=== PATIENT | female | born 1955 | race Caucasian/White ===

== ENCOUNTER 2016-08-12 06:56 | Day surgery (SDC) | payer MEDICAID ==
[~2016-08-12] VITALS: Ht 152.4 cm; Wt 63.1 kg
[~2016-08-12 06:56] MED LIST: AMO500 PO; IBUP-1542 PO; NPH10OT RIGHT EAR
[2016-08-12] MEDS ORDERED: LEVOTHYROXINE (07:22)
[2016-08-12 07:24] VITALS: Ht 152.4 cm; Wt 63.1 kg
[2016-08-12 08:48] VITALS: BP 127/59; PULSE 66; RESP 16
[2016-08-12] MEDS ORDERED: FENTAnyl 50 MCG/ML VIAL ONE (09:41)
[2016-08-12] MEDS ORDERED: MIDAZOLAM 1 MG/ML 2 ML INJ ONE ×2 (09:42)
[2016-08-12 10:00] VITALS: BP 101/55; PULSE 59; RESP 16
--- NOTE | 2016-08-12 10:20 | GILP ---
DATE OF PROCEDURE: NAME OF PROCEDURES: Colonoscopy, biopsy and polypectomy. SURGEON: Mick Villatoro MD PREOPERATIVE DIAGNOSIS: Positive occult blood in stool. POSTOPERATIVE DIAGNOSES 1. Colonoscopy all the way to the cecum. 2. Sigmoid polyp at 20 cm from the anus was removed using the snare and electrocautery. 3. Another small sigmoid colon polyp was removed using the biopsy forceps. 4. Diverticulosis of the colon. 5. Internal hemorrhoids. INDICATION FOR THE PROCEDURE: Ms. Monica Flanagan is a 60-year-old female patient who was noted to have p ositive occult blood in stool. The patient was scheduled for colonoscopy for further evaluation. The procedure and possible complications are well explained to the patient, she understood and conse nted to the procedure. DESCRIPTION OF PROCEDURE: Under the influence of fentanyl and Versed, the colonoscope was carefully introduced in the rectum and under direct vision, it was advanced all the way to the cecum. FINDINGS: The patient had a sigmoid colon polyp at 20 cm from the anus and it was removed using the snare and electrocautery. The patient also had another small sigmoid colon polyp and it was remove d using the biopsy forceps. She had diverticulosis of the colon and internal hemorrhoids. She tolerated the procedure very well and there was no complication from the procedure. At the end of the procedures, she was awake with stable vital signs and she was discharged home to the care of her family. IMPRESSION: Please see postoperative diagnoses. PLAN: 1. Await histopathology reports. 2. Next screening colonoscopy in 5 years. Dictated By: MICK VILLATORO MD GD/NTS Conf#: [id number] DID#: [id number]
== END 2016-08-12 12:12 | disposition home or self-care (01) ==
LOC: GIL 06:56
PROVIDERS: ATTEND Internal Medicine Gastroenterology
DX: K92.1 Melena (principal); D12.5 Benign neoplasm of sigmoid colon; K57.90 Diverticulosis of intestine, part unspecified, without perforation or abscess without bleeding; K64.8 Other hemorrhoids
CPT/HCPCS: 45380; 88305; J2250; J3010; Z7610

== ENCOUNTER 2016-09-16 18:02 | Emergency (ER) | payer MEDICAID, OTHER ==
[~2016-09-16] VITALS: Wt 71.0 kg
[~2016-09-16 18:02] MED LIST changes: -AMO500 PO; -IBUP-1542 PO; +LEVOTHYROXINE; -NPH10OT RIGHT EAR
--- NOTE | 2016-09-16 23:08 | ERA ---
ER Documentation Chief Complaint Date/Time DATE: 09/16/16 TIME: 23:08 Chief Complaint LOWER ABD PAIN X 8 DAYS WITH N/V TODAY HPI The patient is a 60-year-old female, presenting to the ER because of abdominal pain for 1 day, associated with vomiting of mostly mucus. She had similar symptoms previously. The pain is vague 5/10, no aggravating or relieving factor. He denies fever, chills, neck pain, chest pain, dysuria, diarrhea. She does not smoke nor drink Past medical history: Hypothyroidism, hemorrhoids Past surgical history: Polypectomy during colonoscopy in July 2016, ROS All systems reviewed and are negative except as per history of present illness. Medications Home Meds Active Scripts Ibuprofen* (Motrin*) 600 Mg Tab, 600 MG PO Q6H Y for PAIN AND OR ELEVATED TEMP, #20 TAB Prov:DAWSON SANDOVAL MD 09/17/16 Reported Medications [Levothyroxine] No Conflict Check 08/12/16 Allergies Allergies: Coded Allergies: No Known Allergy (Unverified , 08/12/16) PMhx/Soc History of Surgery: Yes () Anesthesia Reaction: No Hx Neurological Disorder: No Hx Respiratory Disorders: No Hx Cardiac Disorders: No Hx Psychiatric Problems: No Hx Miscellaneous Medical Probl: No Hx Alcohol Use: No Hx Substance Use: No Hx Tobacco Use: No Physical Exam Vitals Vital Signs Date Time Temp Pulse Resp B/P Pulse Ox O2 Delivery O2 Flow Rate FiO2 09/17/16 00:00 52 14 106/50 Room Air 09/16/16 23:30 53 13 105/56 Room Air 09/16/16 18:15 98.0 59 18 125/60 99 Physical Exam Const: No acute distress. Head: Atraumatic. Eyes: Normal Conjunctiva. ENT: Normal External Ears, Nose and Mouth. Neck: Full range of motion. No meningismus. Resp: Clear to auscultation bilaterally. Cardio: Regular rate and rhythm, no murmurs. Abd: Soft, non distended, normal bowel sounds, vague and diffuse abdominal tenderness, no rigidity, rebound, CVA tenderness Skin: No petechiae or rashes. Back: No midline or flank tenderness. Ext: No cyanosis, or edema. Neur: Awake and alert. No focal deficit Psych: Normal Mood and Affect. Result Diagram: 09/16/16 2340 09/16/16 2340 Results 24 hrs Laboratory Tests Test 09/16/16 23:33 09/16/16 23:40 Bedside Urine pH (LAB) 7.0 Bedside Urine Protein (LAB) Negative Bedside Urine Glucose (UA) Negative Bedside Urine Ketones (LAB) Negative Bedside Urine Blood 2+ Bedside Urine Nitrite (LAB) Negative Bedside Urine Leukocyte Esterase (L Negative White Blood Count 5.810^3/ul Red Blood Count 4.2010^6/ul Hemoglobin 12.6g/dl Hematocrit 38.3% Mean Corpuscular Volume 91.2fl Mean Corpuscular Hemoglobin 30.0pg Mean Corpuscular Hemoglobin Concent 32.9g/dl Red Cell Distribution Width 12.7% Platelet Count 93647^3/UL Mean Platelet Volume 9.5fl Neutrophils % 54.0% Lymphocytes % 36.5% Monocytes % 8.1% Eosinophils % 0.7% Basophils % 0.5% Nucleated Red Blood Cells % 0.0/100WBC Neutrophils # 3.110^3/ul Lymphocytes # 2.110^3/ul Monocytes # 0.510^3/ul Eosinophils # 0.010^3/ul Basophils # 0.010^3/ul Nucleated Red Blood Cells # 0.010^3/ul Sodium Level 140mmol/L Potassium Level 3.6mmol/L Chloride Level 105mmol/L Carbon Dioxide Level 27mmol/L Anion Gap 12 Blood Urea Nitrogen 14mg/dl Creatinine 0.63mg/dl Glucose Level 107mg/dl Calcium Level 9.2mg/dl Total Bilirubin 0.5mg/dl Direct Bilirubin 0.00mg/dl Indirect Bilirubin 0.5mg/dl Aspartate Amino Transf (AST/SGOT) 18IU/L Alanine Aminotransferase (ALT/SGPT) 25IU/L Alkaline Phosphatase 93IU/L Total Protein 6.5g/dl Albumin 3.6g/dl Globulin 2.90g/dl Albumin/Globulin Ratio 1.24 Lipase 63U/L Current Medications Medications (Trade) Dose Ordered Sig/Xiomy Route PRN Reason Start Time Stop Time Status Last Admin Dose Admin Sodium Chloride (NS) 1,000 ml @ 1,000 mls/hr Q1H ONCE IV 09/17/16 00:00 09/17/16 00:59 DC 09/17/16 00:40 Ondansetron HCl (Zofran Inj) 4 mg ONCE STAT IV 09/16/16 23:59 09/17/16 00:05 DC 09/17/16 00:40 Ketorolac Tromethamine (Toradol) 30 mg ONCE STAT IV 09/16/16 23:59 09/17/16 00:05 DC 09/17/16 00:41 Procedures/MDM [place] [id number] Radiology Main Line: [phone] DIAGNOSTIC IMAGING REPORT Patient: AMANDO JENSEN : 1955 Age: 60 Sex: F MR #: [id number] DOS: 09/16/16 1108 Ordering MD: DAWSON SANDOVAL MD Location: E/R Room/Bed: PROCEDURE: CT Abdomen and Pelvis without contrast. CLINICAL INDICATION: Pain. TECHNIQUE: CT scan of the abdomen and pelvis was performed on a multidetector slice CT scanner. No intravenous contrast material was utilized. Sagittal and coronal reformatted images were obtained from the axial source images. Images were reviewed on a high-resolution PACS workstation. Exam CTDlvol = 10 mGy and DLP = 504 Gy-cm. One of the following 3 dose reduction techniques were used: Automated exposure control; adjustment of the mA and/or kV according to patient size; or use of iterative reconstruction technique. COMPARISON: None. FINDINGS: There is no obstruction or ileus. There is abundant stool throughout the colon. The appendix is visualized and is normal in size. There is no evidence for acute appendicitis. There is sigmoid colon diverticulosis without evidence for diverticulitis. There is no free fluid. The liver is overall normal in size. There are multiple hypodense lesions within the liver, consistent with cyst. The largest lesions in the left lobe at 3.25 cm in diameter.. The gallbladder has been removed. There is no definite biliary ductal dilation. Pancreas is normal in appearance. Spleen is unremarkable.. There are no adrenal masses. The aorta is normal caliber. There is a 4 mm fat containing lesion in the cortex in the mid pole right kidney , likely an angiomyolipoma. Kidneys are otherwise normal in appearance without hydronephrosis or calculus. Ureters are of normal caliber. Urinary bladder is unremarkable. Uterus is unremarkable. Ovaries are not well characterized. There are degenerative changes of the lumbar spine. Limited evaluation lung bases is unremarkable. IMPRESSION: 1. Sigmoid colon diverticulosis without evidence for diverticulitis. 2. No obstruction or ileus. Abundant stool. 3. Multiple liver cysts. 4. Status post cholecystectomy. 5. Small fat containing lesion in the right kidney, likely a small angiomyolipoma. No obstructive uropathy. 6. No evidence for appendicitis. RPTAT: HMVK .Dawson Li MD, MD Date Time Electronically viewed and signed by .Dawson Li MD, MD on 09/17/2016 01:22 .K/ CC: DAWSON SANDOVAL MD MEDICAL MAKING DECISION: The patient is a 60-year-old female, presenting with acute abdominal pain of unclear etiology, acute hematuria. She was treated with 1 L normal saline for clinical dehydration, Zofran 4 mg IV for nausea, Toradol 30 mg IV for pain with good response. The differential diagnoses considered include but are not limited to cholelithiasis, cholecystitis, cystitis, pancreatitis, hepatitis, gastritis, peptic ulcer disease, gastric ulcer, appendicitis, diverticulitis, cholangitis, choledocholithiasis, partial small bowel obstruction. Departure Diagnosis: Primary Impression: Abdominal pain Additional Impression: Hematuria Condition: Good Comments She was discharged with Motrin I discussed the findings with the patient. I advised the patient to follow-up with the primary physician in about 1-2 days, sooner if needed and return if any concern. The patient's blood pressure was elevated (>120/80) but appears stable without evidence of hypertension emergency or urgency. The patient was counseled about the risks of hypertension and urged to pursue outpatient monitoring and therapy within a week with their primary care physician. DAWSON SANDOVAL MD Sep 16, 2016 23:08
[2016-09-16 23:34] LABS: URINE BLOOD (Dip) POC 2+ (NEGATIVE)
[2016-09-16] MEDS ORDERED: KETOROLAC 30 MG INJ IV STA (23:59)
[2016-09-16] MEDS ORDERED: ONDANSETRON 4 MG INJ IV STA (23:59)
[2016-09-17] VITALS: BP 106/50; PULSE 52; RESP 14
[2016-09-17] MEDS ORDERED: SOD CHLORIDE 0.9% 1,000 ML IV ONE
[2016-09-17 00:04] LABS: ADD SCAN DIFF NO
[2016-09-17 00:06] LABS: BASOPHILS % 0.5 % (0.0-2.0); EOSINOPHILS % 0.7 % (0.0-7.0); HEMATOCRIT 38.3 % (37.0-47.0); HEMOGLOBIN 12.6 g/dl (12.0-16.0); LYMPHOCYTES # 2.1 10^3/ul (0.8-2.9); LYMPHOCYTES % 36.5 % (15.0-51.0); MEAN CORPUSCULAR HGB CONC 32.9 g/dl (32.0-37.0); MEAN CORPUSCULAR VOLUME 91.2 fl (82.0-101.0); MEAN PLATELET VOLUME 9.5 fl (7.4-10.4); MONOCYTE # 0.5 10^3/ul (0.3-0.9); MONOCYTES % 8.1 % (0.0-11.0); NEUTROPHIL # 3.1 10^3/ul (1.6-7.5); PLATELET COUNT 310 10^3/UL (140-415); RED CELL DISTRIBUTION WIDTH 12.7 % (11.5-14.5); WHITE BLOOD COUNT 5.8 10^3/ul (4.8-10.8)
[2016-09-17 00:17] LABS: ALBUMIN 3.6 g/dl (3.3-4.9); POTASSIUM 3.6 mmol/L (3.5-5.1)
[2016-09-17 00:19] LABS: BILIRUBIN,INDIRECT 0.5 mg/dl (0-1.1); BILIRUBIN,TOTAL 0.5 mg/dl (0.2-1.3); CREATININE 0.63 mg/dl (0.44-1.00)
[2016-09-17 00:20] LABS: ALBUMIN/GLOBULIN RATIO 1.24; CALCIUM 9.2 mg/dl (8.4-10.2); TOTAL PROTEIN 6.5 g/dl (6.1-8.1)
--- NOTE | 2016-09-17 01:23 | RADRPT ---
PROCEDURE: CT Abdomen and Pelvis without contrast. CLINICAL INDICATION: Pain. TECHNIQUE: CT scan of the abdomen and pelvis was performed on a multidetector slice CT scanner. N o intravenous contrast material was utilized. Sagittal and coronal reformatted images were obtained from the axial source images. Images were reviewed on a high-resolution PACS workstation. Exam CTDl vol = 10 mGy and DLP = 504 Gy-cm. One of the following 3 dose reduction techniques were used: Autom ated exposure control; adjustment of the mA and/or kV according to patient size; or use of iterative reconstruction technique. COMPARISON: None. FINDINGS: There is no obstruction or ileus. There is abundant stool throughout the colon. The appendix is vi sualized and is normal in size. There is no evidence for acute appendicitis. There is sigmoid colo n diverticulosis without evidence for diverticulitis. There is no free fluid. The liver is overall normal in size. There are multiple hypodense lesions within the liver, consiste nt with cyst. The largest lesions in the left lobe at 3.25 cm in diameter.. The gallbladder has be en removed. There is no definite biliary ductal dilation. Pancreas is normal in appearance. Splee n is unremarkable.. There are no adrenal masses. The aorta is normal caliber. There is a 4 mm fat containing lesion in the cortex in the mid pole right kidney, likely an angiomyo lipoma. Kidneys are otherwise normal in appearance without hydronephrosis or calculus. Ureters are of normal caliber. Urinary bladder is unremarkable. Uterus is unremarkable. Ovaries are not well characterized. There are degenerative changes of the lumbar spine. Limited evaluation lung bases is unremarkable. IMPRESSION: 1. Sigmoid colon diverticulosis without evidence for diverticulitis. 2. No obstruction or ileus. Abundant stool. 3. Multiple liver cysts. 4. Status post cholecystectomy. 5. Small fat containing lesion in the right kidney, likely a small angiomyolipoma. No obstructive u ropathy. 6. No evidence for appendicitis. RPTAT: HMVK .Dawson Li MD, Date Time Electronically viewed and signed by .Dawson Li MD, on 09/17/2016 01:22 .K/
[2016-09-17] MEDS ORDERED: IBUP-1542 PO (01:57)
== END 2016-09-17 03:05 | disposition home or self-care (01) ==
LOC: E/R 18:02
DX: R10.84 Generalized abdominal pain (principal); R40.2252 Coma scale, best verbal response, oriented, at arrival to emergency department; R31.9 Hematuria, unspecified; E03.9 Hypothyroidism, unspecified; R11.2 Nausea with vomiting, unspecified; R40.2142 Coma scale, eyes open, spontaneous, at arrival to emergency department; R40.2362 Coma scale, best motor response, obeys commands, at arrival to emergency department
CPT/HCPCS: 36415; 74176; 80053; 81003; 83690; 85025; 96374; 96375; J1885; J2405; J7030; Z7502

== ENCOUNTER 2018-08-15 00:06 | Emergency (ER) | payer OTHER ==
[~2018-08-15] VITALS: Wt 62.6 kg
[~2018-08-15 00:06] MED LIST changes: +IBUP-1542 PO
[2018-08-15] MEDS ORDERED: HYDR50TA15 PO (04:35)
[2018-08-15 04:52] VITALS: BP 149/69; PULSE 72; RESP 16
--- NOTE | 2018-08-16 13:27 | ERD ---
ER Documentation Chief Complaint Chief Complaint Insomnia x3wks HPI 62-year-old female patient with medical history of insomnia, hyperlipidemia, cyst presents to the ED stating that she is been having difficulty sleeping for the last 3 weeks. States that she is tried Benadryl without relief. Previously she has als a sleep injection as well a B12 vitamin to assist her with sleeping however patient has had no relief. Taking medications and does not remember the name. Patient reports that she has been more worried than usual. Reports that the lack of sleep is also giving her a frontal headache and states that she wants to sleep. denies having anxiety, panic attack. Denies any fever, chills, nausea, vomiting, diarrhea, neck stiffness, shortness of breath, dyspnea on exertion. Denies any suicidal or homicidal ideations. ROS All systems reviewed and are negative except as per history of present illness. Medications Home Meds Active Scripts Hydroxyzine Hcl* (Hydroxyzine Hcl*) 50 Mg Tablet, 50 MG PO QHS, #14 TAB Prov:THERESA FERNANDES PA-C 08/15/18 Ibuprofen* (Motrin*) 600 Mg Tab, 600 MG PO Q6H PRN for PAIN AND OR ELEVATED TEMP, #20 TAB Prov:RAFAEL SANDOVAL MD 09/17/16 Reported Medications [Levothyroxine] No Conflict Check 08/12/16 Allergies Allergies: Coded Allergies: No Known Allergy (Unverified , 08/12/16) PMhx/Soc History of Surgery: Yes () Anesthesia Reaction: No Hx Neurological Disorder: No Hx Respiratory Disorders: No Hx Cardiac Disorders: No Hx Psychiatric Problems: No Hx Miscellaneous Medical Probl: Yes (thyroid problems) Hx Alcohol Use: No Hx Substance Use: No Hx Tobacco Use: No Smoking Status: Never smoker FmHx Family History: No diabetes, No coronary disease Physical Exam Vitals Vital Signs Date Temp Pulse Resp B/P (MAP) Pulse Ox O2 O2 Flow FiO2 Time Delivery Rate 08/15/18 72 16 149/69 100 Room Air 04:52 (95) 08/15/18 95.9 76 20 151/69 100 00:11 (96) Physical Exam Const: Iar-nix-txagrdmkc, well-nourished. In no acute distress. Head: Atraumatic, normocephalic Eyes: Normal Conjunctiva without injection. No purulent discharge. PERRLA. EOMI ENT: Normal external ear. Ear canal without erythema. Tympanic membrane pearly abebe without effusion or bulging. Nasal canal clear with normal turbinates. Blaine st oropharynx without tonsillar exudates. Non-erythematous pharynx. Uvula midline. No drooling. No trismus. Neck: No cervical midline tenderness. Full range of motion. No meningismus. No cervical lymphadenopathy. No JVD. Resp: Clear to auscultation bilaterally. No wheezing, rhonchi, rales, or crackles. No accessory muscle use. No retractions. Cardio: Regular rate and rhythm. No murmurs, rubs or gallops. Abd: Soft, non tender, non distended. Normal bowel sounds. No palpable masses. No rebound tenderness. No guarding. Negative McBurney's Point. Negative Cazares's Sign. Skin: Normal skin turgor. No petechiae or rashes Back: No midline tenderness. No CVA tenderness. Ext: No cyanosis, or edema. Distal pulses intact bilaterally. Neur: Awake and alert. Normal gait. Normal coordination. Cranial Nerves II- VII intact. Normal finger to nose. Muscle strength 5/5. Sensation intact. Psych: Normal Mood and Affect Procedures/MDM 62-year-old female patient presents to the ED stating that she. Patient is afebrile. Patient's neurologic exam is normal. 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 Low suspicion for acute myocardial infarction, pneumothorax, pericarditis, myocarditis, endocarditis, pneumonia, cardiac tamponade, pulmonary embolism, pleural effusion, AAA, aortic dissection, Boerhaave's syndrome, cardiac dysrhythmias,meningitis, intracranial bleed, seizure, stroke, TIA or other emergent conditions. Follow up with primary care physician in 1-2 days. Instructed patient to return to the ED sooner for any worsening symptoms. Patient's questions were answered. Patient is hemodynamically stable. Patient understood and agreed with discharge plan. Patient discharged stable. Disclaimer: Inadvertent spelling and grammatical errors are likely due to EHR/dictation software use and do not reflect on the overall quality of patient care. Also, please note that the electronic time recorded on this note does not necessarily reflect the actual time of the patient encounter. Departure Diagnosis: Primary Impression: Insomnia Insomnia type: unspecified Qualified Codes: G47.00 - Insomnia, unspecified Condition: Stable Patient Instructions: Treating Insomnia, Insomnia Referrals: REPLACED BY [facility] YOU HAVE RECEIVED A MEDICAL SCREENING EXAM AND THE RESULTS INDICATE THAT YOU DO NOT HAVE A CONDITION THAT REQUIRES URGENT TREATMENT IN THE EMERGENCY DEPARTMENT. FURTHER EVALUATION AND TREATMENT OF YOUR CONDITION CAN WAIT UNTIL YOU ARE SEEN IN YOUR DOCTORS OFFICE WITHIN THE NEXT 1-2 DAYS. IT IS YOUR RESPONSIBILITY TO MAKE AN APPOINTMENT FOR FOLOW-UP CARE. IF YOU HAVE A PRIMARY DOCTOR --you should call your primary doctor and schedule an appointment IF YOU DO NOT HAVE A PRIMARY DOCTOR YOU CAN CALL OUR PHYSICIAN REFERRAL HOTLINE AT IF YOU CAN NOT AFFORD TO SEE A PHYSICIAN YOU CAN CHOSE FROM THE FOLLOWING [facility] [address] [facility] [address] [facility] [address] [facility] [address] [facility] [address] [facility] [address] [facility] [facility] YOU HAVE RECEIVED A MEDICAL SCREENING EXAM AND THE RESULTS INDICATE THAT YOU DO NOT HAVE A CONDITION THAT REQUIRES URGENT TREATMENT IN THE EMERGENCY DEPARTMENT. FURTHER EVALUATION AND TREATMENT OF YOUR CONDITION CAN WAIT UNTIL YOU ARE SEEN IN YOUR DOCTORS OFFICE WITHIN THE NEXT 1-2 DAYS. IT IS YOUR RESPONSIBILITY TO MAKE AN APPOINTMENT FOR FOLOW-UP CARE. IF YOU HAVE A PRIMARY DOCTOR --you should call your primary doctor and schedule and appointment IF YOU DO NOT HAVE A PRIMARY DOCTOR YOU CAN CALL OUR PHYSICIAN REFERRAL HOTLINE AT . IF YOU CAN NOT AFFORD TO SEE A PHYSICIAN YOU CAN CHOSE FROM THE FOLLOWING [facility]: [facility] [address] [place] [address] [facility] [address] [place] [address] [facility] [address] [place] [address] [facility] URGENT CARE/SPECIALTIES Additional Instructions: Llame al doctor MAANA y [place] mikayla AUBRIE PARA DENTRO DE 2-3 GOMES.Dgale a la secretaria que nosotros le instruimos hacer esta aubrie.Avise o llame si felix condicin se empeora antes de la aubrie. Regresa aqui si peor o no mejor. THERESA FERNANDES PA-C Aug 16, 2018 13:27
== END 2018-08-15 04:53 | disposition home or self-care (01) ==
LOC: FTE 00:06
DX: G47.00 Insomnia, unspecified (principal)
CPT/HCPCS: 99282